=== PATIENT | male | born 1995 | race African-American/Black ===

== ENCOUNTER 2018-12-22 17:27 | Emergency (ER) | payer SELFPAY ==
[2018-12-22] MEDS ORDERED: Lidocaine 1% w/Epinephrine 1:100K 20 ML VIAL ONE (17:37)
== END 2018-12-22 18:15 ==
LOC: ERS 17:27
DX: S51.812A Laceration without foreign body of left forearm, initial encounter (principal); J45.909 Unspecified asthma, uncomplicated; F31.9 Bipolar disorder, unspecified; W25.XXXA Contact with sharp glass, initial encounter
CPT/HCPCS: 12002; J2001

== ENCOUNTER 2025-02-18 14:24 | Emergency (ER) | payer SELFPAY ==
[2025-02-18 15:09] LABS: #Basophils 0.07 10x3/uL (0.0-0.2); #Eosinophils 0.38 10x3/uL (0.0-0.7); #Monocytes 0.81 10x3/uL (0.11-0.59); #Neutrophils 8.53 10x3/uL (1.40-6.50); %Basophils 0.6 % (0.0-1.0); %Eosinophils 3.4 % (0.0-10.0); %Lymphocytes 12.4 % (21.0-51.0); %Monocytes 7.2 % (0.0-10.0); %Neutrophils 76.0 % (42.0-75.0); Hematocrit 42.1 % (42.0-52.0); Hemoglobin 14.4 g/dL (14.0-18.0); Mean Corpuscular Hemoglobin 30.5 pg (27.0-31.0); Mean Corpuscular Volume 89.2 fL (78.0-98.0); Platelet Count 210 10x3/uL (130-400); Red Blood Cell (RBC) Count 4.72 mill/uL (4.70-6.10); White Blood Cell (WBC) Count 11.22 10x3/uL (4.8-10.8)
[2025-02-18] MEDS ORDERED: Magnesium 2 GM/50 ML BAG (IN WATER) ONE (15:18)
[2025-02-18 15:31] LABS: ALT (SGPT) 10 U/L (Less than 45); AST (SGOT) 20 U/L (11-34); Albumin 4.0 g/dL (3.1-4.5); Alkaline Phosphatase 77 U/L (40-110); Anion Gap 16 mmol/L (10-20); BUN (Urea Nitrogen) 11 mg/dL (8.9-20.6); Bilirubin, Total 1.2 mg/dL (0.3-1.2); Calc. Creatinine Clearance 0 mL/min (70-130); Calcium 9.2 mg/dL (7.8-10.44); Carbon Dioxide 21 mmol/L (22-29); Chloride 109 mmol/L (98-107); Globulin 3.1 g/dL (2.4-3.5); Glucose 83 mg/dL (70-105); Potassium 3.5 mmol/L (3.5-5.1); Sodium 142 mmol/L (136-145)
== END 2025-02-18 17:38 | disposition home or self-care (01) ==
LOC: ERS 14:24
DX: J45.901 Unspecified asthma with (acute) exacerbation (principal); J45.991 Cough variant asthma; F17.210 Nicotine dependence, cigarettes, uncomplicated
CPT/HCPCS: 71045; 80053; 85025; 94640; 96365; 96366; 96375; J2919; J3475